=== PATIENT | female | born 1990 | race Caucasian/White ===

== ENCOUNTER 2021-05-07 19:19 | Emergency (ER) | payer MEDICAID ==
[~2021-05-07] VITALS: Ht 157.5 cm; Wt 81.6 kg
[~2021-05-07 19:19] MED LIST: CYCL-839 PO; HYDRCRY2
[2021-05-07 21:02] VITALS: BP 113/79
== END 2021-05-07 21:31 | disposition home or self-care (01) ==
LOC: ER 19:22
DX: S63.502A Unspecified sprain of left wrist, initial encounter (principal); Z79.899 Other long term (current) drug therapy; Z88.8 Allergy status to other drugs, medicaments and biological substances; Z91.040 Latex allergy status; W19.XXXA Unspecified fall, initial encounter; Y93.89 Activity, other specified; Y92.89 Other specified places as the place of occurrence of the external cause; Y99.8 Other external cause status
CPT/HCPCS: 73110

== ENCOUNTER 2022-10-26 17:00 | Emergency (ER) | payer MEDICAID ==
[~2022-10-26] VITALS: Ht 157.5 cm; Wt 86.0 kg
[2022-10-26] MEDS ORDERED: HYDROcodone-ACET 5/325MG TAB PO ONE (19:30)
[2022-10-26 19:36] VITALS: BP 123/84
== END 2022-10-26 23:28 | disposition home or self-care (01) ==
LOC: EDUNIT# 17:00 → EDBD 17:00 → ER 17:00
DX: M25.552 Pain in left hip (principal); Z79.899 Other long term (current) drug therapy; Z88.8 Allergy status to other drugs, medicaments and biological substances; Z91.040 Latex allergy status
CPT/HCPCS: 73502; 74176